=== PATIENT | female | born 1995 | race Caucasian/White ===

== ENCOUNTER 2017-02-07 21:57 | Emergency (ER) | payer MEDICAID, OTHER ==
[~2017-02-07] VITALS: Ht 152.4 cm; Wt 82.3 kg
[2017-02-08] MEDS ORDERED: AMOX TR/POT CLAV 875 MG/125 MG TABLET PO ONE (00:15)
[2017-02-08 00:36] VITALS: BP 125/71
== END 2017-02-08 00:37 | disposition home or self-care (01) ==
LOC: EMS 21:58
DX: L02.415 Cutaneous abscess of right lower limb (principal)
CPT/HCPCS: 99282